=== PATIENT | male | born 1970 | race Caucasian/White ===

== ENCOUNTER 2020-11-25 07:43 | Emergency (ER) | payer BC ==
[2020-11-25] MEDS ORDERED: Morphine 2 MG/ML SYRINGE IVPUSH ONE ×5 (08:00→17:11)
[2020-11-25] MEDS: Nitroglycerin 0.4 MG Tab.SL SL STA ×3 (08:03→09:15)
[2020-11-25] MEDS ORDERED: Tenecteplase 50 MG Kit IV ONE (08:34)
[2020-11-25] MEDS ORDERED: Heparin Sodium/D5W 25,000 UNITS/500 ML BAG IV SCH (08:41)
[2020-11-25] MEDS: Heparin Sodium 5,000 UNITS/0.5 ML Syringe IVPUSH ONE ×2 (08:41→19:41)
--- NOTE | 2020-11-25 09:42 | CR ---
DATE OF SERVICE: 11/25/20 CLINICAL DATA: Chest pain AP CHEST: No priors. The heart size is normal. The lungs are clear. No pneumothorax. No pleural effusions. No evidence of acute intrathoracic disease. [id number] MTDD
--- NOTE | 2020-11-25 11:14 | EDM.PDOC ---
ED HPI GENERAL MEDICAL PROBLEM - General Chief Complaint: Cardiovascular Problem Stated Complaint: CHEST PAIN Time Seen by Provider: 11/25/20 07:55 Source of Information: Reports: EMS History Limitations: Reports: No Limitations - History of Present Illness INITIAL COMMENTS - FREE TEXT/NARRATIVE: A 50 year old male known diabetic ,HTN & morbidly patient came to ED by EMS with chest pain started this morning at 6.30AM.The pain was sharp ,10/10 ,located retro-sternum worse with activity .The patient describe as an elephant was sitting on his chest . The Pt was also c/o pain in both arms . denies fever,N/V ,shortness of breath ,headache, leg pain, abd pain ,dizziness Onset: Today, Sudden Onset Date: 11/25/20 Onset Time: 06:30 Duration: Minutes: (83), Hour(s): (1) Location: Reports: Chest, Upper Extremity, Left, Upper Extremity, Right Quality: Reports: Sharp, Stabbing Severity: Severe Improves with: Reports: None Worsens with: Reports: Movement Context: Reports: Activity Associated Symptoms: Reports: Diaphoresis, Other (cold & c) Treatments [employer]: Reports: Aspirin, Nitroglycerin, Oxygen - Related Data Allergies Allergy/AdvReac Type Severity Reaction Status Date / Time No Known Allergies Allergy Verified 11/25/20 09:20 Home Meds: Home Meds Acetaminophen [Tylenol Extra Strength] 1,000 mg PO BID 11/25/20 [History] DULoxetine [Cymbalta] 60 mg PO BID 11/25/20 [History] Fenofibrate Nanocrystallized [Fenofibrate] 145 mg PO DAILY 11/25/20 [History] Gabapentin [Neurontin] 300 mg PO Q4H 11/25/20 [History] Insulin Aspart [NovoLOG] See Protocol SUBCUT TIDMEALS 11/25/20 [History] Omeprazole 40 mg PO DAILY 11/25/20 [History] Topiramate 100 mg PO TID 11/25/20 [History] atenoloL [Atenolol] 50 mg PO BID 11/25/20 [History] atorvaSTATin [Lipitor] 20 mg PO BEDTIME 11/25/20 [History] hydroCHLOROthiazide [Hydrochlorothiazide] 25 mg PO DAILY 11/25/20 [History] lisinopriL [Lisinopril] 20 mg PO DAILY 11/25/20 [History] metFORMIN [Glucophage XR] 1,000 mg PO BIDMEALS 11/25/20 [History] methocarbamoL [Methocarbamol] 750 mg PO QID 11/25/20 [History] oxyCODONE HCl [Oxycontin] 20 mg PO Q8H 11/25/20 [History] Past Medical History Cardiovascular History: Reports: Hypertension Endocrine/Metabolic History: Reports: Diabetes, Type II, Obesity/BMI 30+ - Past Surgical History Other Musculoskeletal Surgeries/Procedures:: back surgery ED ROS GENERAL - Review of Systems Review Of Systems: See Below Constitutional: Reports: No Symptoms, Diaphoresis Respiratory: Reports: Shortness of Breath Cardiovascular: Reports: Chest Pain, Blood Pressure Problem GI/Abdominal: Reports: No Symptoms : Reports: No Symptoms Musculoskeletal: Reports: Arm Pain Skin: Reports: No Symptoms Neurological: Reports: No Symptoms Hematologic/Lymphatic: Reports: No Symptoms Immunologic: Reports: No Symptoms ED EXAM, GENERAL - Physical Exam Exam: See Below Exam Limited By: Altered Mental Status General Appearance: Alert, WD/WN, Severe Distress Head: Atraumatic, Normocephalic Neck: Normal Inspection Respiratory/Chest: No Accessory Muscle Use Cardiovascular: Normal Peripheral Pulses, Regular Rate, Rhythm, No Edema, No Gallop, No JVD, No Murmur, No Rub GI/Abdominal: Normal Bowel Sounds Extremities: Normal Inspection Neurological: Alert, Oriented Skin Exam: Warm, Normal Color Lymphatic: No Adenopathy Course - Vital Signs Text/Narrative:: The patient arrived at 7.53 Am , EKG done that shows ST elevation in anterior chest leads . VITALS = BP 123/81 pulse =86 O 2 98% Labs orderd Na was 128 & K 3.2 /Troponin 1 was less than 0.06 one liter of normal saline given & started 2nd liter before transfer The patient was given one nitro & 4 baby aspirin by EMS . EKG shown to Melony e hospitalist -anterior STEMI was confirmed by e-hospitalist Fight crew activated at 8.00 Am AT 8.01 am ,1nitro & 2 mg of morphine was given I/V At 8.08 am ,1 nitro & 2mg of morphine repeated at 8.10 1nito & 2mg of morphine repeated pain level reduced 4/10 & patient was feeling better. Spoke with plumber supervisor Dr Jaime Varela & he recommended TNK . after ruling out contraindication of TNK by E-hospitalist ,TNK given at 8.34 am bleeding from gums started after TNK Heparin bolus & heparin drip started at 8.40 AT 9 AM ,patient wants to urinate & pain started again ,cony ,07/07 . repeated 1nitro & morphine 2 mg at 9.9am again 1 nitro & morphine repated at 9.12 & 9.15 am Flight crew arrived at 9.15 , they did repeat EKG that again shows anterior chest lead elevation flight crew started nitro drip Pt was air lifted for PTCA to [facility] at 9.50 am Last Recorded V/S: Last Vital Signs Temp 98.1 F 11/25/20 07:56 Pulse 86 11/25/20 08:05 Resp 16 11/25/20 08:05 BP 123/81 11/25/20 08:05 Pulse Ox 98 11/25/20 08:05 - Orders/Labs/Meds Orders: Active Orders 24 hr Category Date Time Status EKG Documentation Completion [RC] ASDIRECTED Care 11/25/20 08:14 Active EKG Documentation Completion [RC] ASDIRECTED Care 11/25/20 10:43 Active Heparin Sodium/D5W [Heparin 25,000 Units in D5W 500 ML] Med 11/25/20 08:41 Active 25,000 units in 500 ml IV TITRATE Medication Orders Heparin Sodium/Dextrose (Heparin 25,000 Units In D5w 500 Ml) 25,000 units in 500 mls @ 10 mls/hr IV TITRATE ELIZABETH; Protocol Labs: Laboratory Tests 11/25/20 11/25/20 11/25/20 Range/Units 08:13 08:15 08:20 WBC 8.4 (4.0-11.0) K/uL RBC 5.53 (4.50-6.50) M/uL Hgb 15.7 (13.0-18.0) g/dL Hct 47.5 (40.0-54.0) % MCV 86 (76-96) fL MCH 28.4 (27.0-32.0) pg MCHC 33.1 (31.0-35.0) g/dL RDW 13.5 (11.0-16.0) % Plt Count 231 (150-400) K/uL MPV 10.6 H (6.0-10.0) fL Neut % (Auto) 55.1 (45.0-70.0) % Lymph % (Auto) 28.5 (20.0-40.0) % Bullock % (Auto) 11.8 H (3.0-10.0) % Eos % (Auto) 3.6 (1.0-5.0) % Baso % (Auto) 1.0 H (0.0-0.5) % Neut # (Auto) 4.64 (2.00-7.50) K/uL Lymph # (Auto) 2.40 (1.50-4.00) K/uL Bullock # (Auto) 0.99 H (0.20-0.80) K/uL Eos # (Auto) 0.30 (0.04-0.40) K/uL Baso # (Auto) 0.08 (0.02-0.10) K/uL PT (9.0-11.5) sec INR (1.0-3.5) APTT (24.4-33.2) SECONDS D-Dimer, Quantitative < 100 (0-400) ng/mL Sodium 128 L (136-145) mmol/L Potassium 3.2 L (3.5-5.1) mmol/L Chloride 96 L (98-107) mmol/L Carbon Dioxide 28.7 (21.0-32.0) mmol/L Anion Gap 6.5 (5.0-15.0) mmol/L BUN 20 (8-26) mg/dL Creatinine 1.47 H (0.70-1.30) mg/dL Est Cr Clr Drug Dosing TNP Estimated GFR (MDRD) 51 L (>60) MLS/MIN BUN/Creatinine Ratio 13.6 (6-25) Glucose 356 H (74-100) mg/dL Calcium 9.1 (8.5-10.1) mg/dL Total Bilirubin 0.8 (0.0-1.0) mg/dL AST 24 (15-37) U/L ALT 41 (12-78) U/L Alkaline Phosphatase 65 (46-116) U/L Troponin I 0.060 (0.000-0.060) ng/mL B-Natriuretic Peptide (0-125) pg/mL Total Protein 7.2 (6.4-8.2) g/dL Albumin 4.0 (3.4-5.0) g/dL Globulin 3.2 (2.2-4.2) g/dL Albumin/Globulin Ratio 1.3 (0.8-2.0) 11/25/20 11/25/20 11/25/20 Range/Units 08:24 08:30 08:59 WBC (4.0-11.0) K/uL RBC (4.50-6.50) M/uL Hgb (13.0-18.0) g/dL Hct (40.0-54.0) % MCV (76-96) fL MCH (27.0-32.0) pg MCHC (31.0-35.0) g/dL RDW (11.0-16.0) % Plt Count (150-400) K/uL MPV (6.0-10.0) fL Neut % (Auto) (45.0-70.0) % Lymph % (Auto) (20.0-40.0) % Bullock % (Auto) (3.0-10.0) % Eos % (Auto) (1.0-5.0) % Baso % (Auto) (0.0-0.5) % Neut # (Auto) (2.00-7.50) K/uL Lymph # (Auto) (1.50-4.00) K/uL Bullock # (Auto) (0.20-0.80) K/uL Eos # (Auto) (0.04-0.40) K/uL Baso # (Auto) (0.02-0.10) K/uL PT 11.0 (9.0-11.5) sec INR 1.1 (1.0-3.5) APTT 21.9 L (24.4-33.2) SECONDS D-Dimer, Quantitative (0-400) ng/mL Sodium (136-145) mmol/L Potassium (3.5-5.1) mmol/L Chloride (98-107) mmol/L Carbon Dioxide (21.0-32.0) mmol/L Anion Gap (5.0-15.0) mmol/L BUN (8-26) mg/dL Creatinine (0.70-1.30) mg/dL Est Cr Clr Drug Dosing Estimated GFR (MDRD) (>60) MLS/MIN BUN/Creatinine Ratio (6-25) Glucose (74-100) mg/dL Calcium (8.5-10.1) mg/dL Total Bilirubin (0.0-1.0) mg/dL AST (15-37) U/L ALT (12-78) U/L Alkaline Phosphatase (46-116) U/L Troponin I (0.000-0.060) ng/mL B-Natriuretic Peptide 38 (0-125) pg/mL Total Protein (6.4-8.2) g/dL Albumin (3.4-5.0) g/dL Globulin (2.2-4.2) g/dL Albumin/Globulin Ratio (0.8-2.0) Meds: Medications Generic Name Dose Route Start Last Admin Trade Name Freq PRN Reason Stop Dose Admin Heparin Sodium/Dextrose 25,000 units in 500 mls @ 10 mls/hr 11/25/20 08:41 Heparin 25,000 Units In D5w 500 Ml IV TITRATE ELIZABETH Protocol Discontinued Medications Generic Name Dose Route Start Last Admin Trade Name Freq PRN Reason Stop Dose Admin Morphine Sulfate 2 mg 11/25/20 08:00 Morphine IVPUSH 11/25/20 08:01 ONETIME ONE Nitroglycerin 0.4 mg 11/25/20 08:03 Nitrostat SL 11/25/20 08:04 Q5M STA Tenecteplase 50 mg 11/25/20 08:34 11/25/20 08:34 Tnkase IV 11/25/20 08:35 50 mg ONETIME ONE Administration Protocol Departure - Departure Time of Disposition: 09:50 Disposition: DC/Tfer to [facility] Reason for Transfer *Q: Primary PCI Indicated (PTCA) Condition: Fair Clinical Impression: Chest pain Qualifiers: Chest pain type: chest pain due to myocardial ischemia Instructions: Hypertension, Adult, [id number], Heart Attack, [id number] Referrals: PCP,None [Primary Care Provider] - Forms: ED Department Discharge Sepsis Event Note (ED) - Focused Exam Vital Signs: Vital Signs Temp Pulse Resp BP Pulse Ox 11/25/20 08:05 86 16 123/81 98 11/25/20 08:00 76 16 136/92 H 11/25/20 07:56 98.1 F 77 16 135/97 H 98 - Problem List & Annotations (1) ST elevation (STEMI) myocardial infarction involving left anterior lisa cending coronary artery SNOMED Code(s): 46823491 Code(s): I21.02 - STEMI INVOLVING LEFT ANTERIOR DESCENDING CORONARY ARTERY Status: Acute Current Visit: Yes (2) Hypertension SNOMED Code(s): 39964923 Code(s): I10 - ESSENTIAL (PRIMARY) HYPERTENSION Status: Acute Current Visit: Yes (3) Diabetes mellitus SNOMED Code(s): 70638500 Code(s): E11.9 - TYPE 2 DIABETES MELLITUS WITHOUT COMPLICATIONS Status: Acute Priority: Medium Current Visit: No Qualifiers: Diabetes mellitus complication status: without complication (4) Diabetes mellitus SNOMED Code(s): 06722942 Code(s): E11.9 - TYPE 2 DIABETES MELLITUS WITHOUT COMPLICATIONS Status: Acute Priority: Medium Current Visit: No - My Orders Last 24 Hours: My Active Orders 11/25/20 08:14 EKG Documentation Completion [RC] ASDIRECTED 11/25/20 08:41 Heparin Sodium/D5W [Heparin 25,000 Units in D5W 500 ML] 25,000 units in 500 ml IV TITRATE 11/25/20 10:43 EKG Documentation Completion [RC] ASDIRECTED - Assessment/Plan Last 24 Hours: My Active Orders 11/25/20 08:14 EKG Documentation Completion [RC] ASDIRECTED 11/25/20 08:41 Heparin Sodium/D5W [Heparin 25,000 Units in D5W 500 ML] 25,000 units in 500 ml IV TITRATE 11/25/20 10:43 EKG Documentation Completion [RC] ASDIRECTED
[2020-11-25] MEDS ORDERED: Morphine 2 MG/ML SYRINGE IVPUSH PRN (16:54)
[2020-11-25] MEDS ORDERED: Nitroglycerin/D5W 25 MG/250 ML BOTTLE IV SCH (19:15)
== END 2020-11-25 09:50 ==
LOC: LB.ED 07:43
DX: I25.9 Chronic ischemic heart disease, unspecified (principal); I10 Essential (primary) hypertension; E11.9 Type 2 diabetes mellitus without complications; E66.01 Morbid (severe) obesity due to excess calories; Z68.34 Body mass index [BMI] 34.0-34.9, adult; Z79.899 Other long term (current) drug therapy; Z79.4 Long term (current) use of insulin
CPT/HCPCS: 36415; 37195; 71045; 80053; 83880; 84484; 85025; 85379; 85610; 85730; 93005; 96365; 96375; 96376; 99285; 99285-25; J1644-GY; J2270; J3101; J3490